=== PATIENT | female | born 1975 | race Caucasian/White ===

== ENCOUNTER 2017-10-19 23:37 | Emergency (ER) | payer MEDICARE, MEDICAID ==
[2017-10-20] MEDS ORDERED: predniSONE 20 MG Tab PO ONE
--- NOTE | 2017-10-20 00:07 | EDM.PDOC ---
ED HPI GENERAL MEDICAL PROBLEM - General Chief Complaint: General Stated Complaint: SHOOTING PAIN RIGHT SIDE OF BODY [id number] Time Seen by Provider: 10/19/17 23:55 Source of Information: Reports: Patient History Limitations: Reports: No Limitations - History of Present Illness INITIAL COMMENTS - FREE TEXT/NARRATIVE: This 41 yo female patient reports to the ED with generalized shooting pain through her entire left side of her body. The patient reports she has noticed increased symptoms over the past week. The patient reports a past history of migraine headaches as well as cervical spinal surgery. The patient reports she has had similar symptoms in the past and would like to have some pain medications to take care of her pain and allow her to sleep. Onset: Gradual Duration: Day(s):, Constant, Getting Worse Location: Reports: Generalized (right sided "shooting" pains) Quality: Reports: Sharp, Stabbing Severity: Moderate Improves with: Reports: None Worsens with: Reports: None Associated Symptoms: Reports: No Other Symptoms Treatments [employer]: Reports: NSAIDS Right Temporal Head Pain Score (Numeric/FACES): 6 - Related Data Allergies Allergy/AdvReac Type Severity Reaction Status Date / Time Fish Containing Products Allergy Swelling Verified 10/20/17 00:02 Home Meds: Home Meds Acetaminophen [Tylenol] 500 mg PO DAILY 10/20/17 [History] Levothyroxine Sodium [Synthroid] 100 mcg PO DAILY 10/20/17 [History] Propranolol [Inderal] 20 mg PO DAILY 10/20/17 [History] Rosuvastatin [Crestor] 10 mg PO DAILY 10/20/17 [History] Sertraline [Zoloft] 100 mg PO BEDTIME 10/20/17 [History] diphenhydrAMINE [Benadryl] 50 cap PO DAILY PRN 10/20/17 [History] hydrALAZINE [Apresoline] 50 mg PO DAILY 10/20/17 [History] Past Medical History Neurological History: Reports: Migraines, Other (See Below) Other Neuro History: neck injury Social & Family History - Tobacco Use Smoking Status *Q: Former Smoker Used Tobacco, but Quit: No - Caffeine Use Caffeine Use: Reports: None - Recreational Drug Use Recreational Drug Use: No ED ROS GENERAL - Review of Systems Review Of Systems: ROS reveals no pertinent complaints other than HPI. ED EXAM, GENERAL - Physical Exam Exam: See Below Exam Limited By: No Limitations General Appearance: Alert, WD/WN, Anxious, Thin Eye Exam: Bilateral Eye: EOMI, Normal Inspection, PERRL Ears: Normal External Exam, Normal Canal, Hearing Grossly Normal, Normal TMs Nose: Normal Inspection, Normal Mucosa, No Blood Throat/Mouth: Normal Inspection, Normal Lips, Normal Teeth, Normal Gums, Normal Oropharynx, Normal Voice, No Airway Compromise Head: Atraumatic, Normocephalic Neck: Normal Inspection, Supple, Non-Tender, Full Range of Motion Respiratory/Chest: No Respiratory Distress, Lungs Clear, Normal Breath Sounds, No Accessory Muscle Use, Chest Non-Tender Cardiovascular: Normal Peripheral Pulses, Regular Rate, Rhythm, No Edema, No Gallop, No JVD, No Murmur, No Rub GI/Abdominal: Normal Bowel Sounds, Soft, Non-Tender, No Organomegaly, No Distention, No Abnormal Bruit, No Mass (Female) Exam: Deferred Rectal (Female) Exam: Deferred Back Exam: Normal Inspection, Full Range of Motion, NT Extremities: Normal Inspection, Normal Range of Motion, Non-Tender, Normal Capillary Refill, No Pedal Edema Neurological: Alert, Oriented, CN II-XII Intact, Normal Cognition, Normal Gait, Normal Reflexes, No Motor/Sensory Deficits Psychiatric: Normal Affect, Normal Mood Skin Exam: Warm, Dry, Intact, Normal Color, No Rash Lymphatic: No Adenopathy Course - Vital Signs Last Recorded V/S: Last Vital Signs Temp 36.7 C 10/19/17 23:42 Pulse 88 10/19/17 23:42 Resp 16 10/19/17 23:42 BP 115/72 10/19/17 23:42 Pulse Ox 100 10/19/17 23:42 - Orders/Labs/Meds Meds: Medications Discontinued Medications Generic Name Dose Route Start Last Admin Trade Name Rcq PRN Reason Stop Dose Admin Prednisone 40 mg 10/20/17 00:00 10/20/17 00:10 Prednisone PO 10/20/17 00:01 40 mg ONETIME ONE Administration Departure - Departure Time of Disposition: 00:02 Disposition: Home, Self-Care 01 Condition: Fair Clinical Impression: Neuropathy - Discharge Information Instructions: Neuropathic Pain Referrals: PCP,Unobtain [Primary Care Provider] - Forms: ED Department Discharge Care Plan Goals: The patient was advised of the examination results during the visit. The patient was given an oral dose of Prednisone while in the ED. The patient was discharged with a script for Prednisone (20 mg) #8 to take 2 by mouth daily for 4 additional days. If the patient has any additional symptoms, the patient should follow-up with her primary care facility or return to the ED.
== END 2017-10-20 00:12 | disposition home or self-care (01) ==
LOC: DL.ED 23:37
DX: G62.9 Polyneuropathy, unspecified (principal); Z91.013 Allergy to seafood; Z79.899 Other long term (current) drug therapy; Z87.891 Personal history of nicotine dependence
CPT/HCPCS: 99283; A9270; 99282

== ENCOUNTER 2017-10-25 10:54 | Emergency (ER) | payer MEDICARE, MEDICAID ==
[2017-10-25] MEDS ORDERED: Sodium Chloride 0.9% 10 ML Syringe FLUSH PRN (11:38)
[2017-10-25] MEDS ORDERED: Ketorolac 30 MG/ML SDV IVPUSH ONE (11:38)
[2017-10-25] MEDS ORDERED: Sodium Chloride 0.9% 1,000 ML IV ONE (11:38)
[2017-10-25] MEDS ORDERED: Promethazine 25 MG/ML SDV IM ONE (11:40)
--- NOTE | 2017-10-25 12:51 | EDM.PDOC ---
ED HPI GENERAL MEDICAL PROBLEM - General Chief Complaint: General Stated Complaint: NERVE PAIN IN FACE Time Seen by Provider: 10/25/17 11:15 Source of Information: Reports: Patient, RN, RN Notes Reviewed History Limitations: Reports: No Limitations - History of Present Illness INITIAL COMMENTS - FREE TEXT/NARRATIVE: Pt presents to the ER with c/o right sided face pain. She states she has a spinal cord injury from 12 years ago, she states she fell down a flight of stairs. She states the pain is a 10/10 nerve pain from just above the right eyebrow, down to the right side of the chin. She states her teeth, tongue, and jaw are affected as well. She states a history of essential tremors following the spinal cord injury. Onset: Gradual Location: Reports: Face Quality: Reports: Stabbing Severity: Severe Improves with: Reports: None Worsens with: Reports: None Right Face Pain Score (Numeric/FACES): 10 - Related Data Allergies Allergy/AdvReac Type Severity Reaction Status Date / Time Fish Containing Products Allergy Swelling Verified 10/20/17 00:02 Home Meds: Home Meds Acetaminophen [Tylenol] 500 mg PO DAILY 10/20/17 [History] Levothyroxine Sodium [Synthroid] 100 mcg PO DAILY 10/20/17 [History] Propranolol [Inderal] 20 mg PO DAILY 10/20/17 [History] Rosuvastatin [Crestor] 10 mg PO DAILY 10/20/17 [History] Sertraline [Zoloft] 100 mg PO DAILY 10/20/17 [History] diphenhydrAMINE [Benadryl] 50 cap PO DAILY PRN 10/20/17 [History] hydrALAZINE [Apresoline] 50 mg PO DAILY 10/20/17 [History] Past Medical History Other OB/BYN History: lumps removed from breast due to infection Neurological History: Reports: Migraines, Other (See Below) Other Neuro History: neck injury 12 years ago; trigeminal neuralgia Psychiatric History: Reports: Depression Endocrine/Metabolic History: Reports: Hypothyroidism Social & Family History - Family History Family Medical History: Noncontributory - Tobacco Use Smoking Status *Q: Never Smoker Used Tobacco, but Quit: No - Caffeine Use Caffeine Use: Reports: None - Recreational Drug Use Recreational Drug Use: No ED ROS GENERAL - Review of Systems Review Of Systems: ROS reveals no pertinent complaints other than HPI. ED EXAM, GENERAL - Physical Exam Exam: See Below Exam Limited By: No Limitations General Appearance: Alert, WD/WN, Moderate Distress Eye Exam: Bilateral Eye: EOMI, Normal Inspection Ears: Normal External Exam, Hearing Grossly Normal Nose: Normal Inspection Throat/Mouth: Normal Inspection, Normal Voice, No Airway Compromise Head: Atraumatic, Normocephalic Neck: Normal Inspection, Limited Range of Motion (10 year old spinal cord injury ) Respiratory/Chest: No Respiratory Distress, Lungs Clear, Normal Breath Sounds, No Accessory Muscle Use, Chest Non-Tender Cardiovascular: Normal Peripheral Pulses, Regular Rate, Rhythm, No Edema, No Gallop, No JVD, No Murmur, No Rub Peripheral Pulses: 2+: Radial (L), Radial (R) GI/Abdominal: Normal Bowel Sounds, Soft, Non-Tender (Female) Exam: Deferred Rectal (Female) Exam: Deferred Back Exam: Normal Inspection, Decreased Range of Motion (multiple spinal surgeries, ) Extremities: Normal Inspection, Normal Range of Motion, Non-Tender, No Pedal Edema, Normal Capillary Refill Neurological: Alert, Oriented, CN II-XII Intact, Normal Cognition, Normal Gait, No Motor/Sensory Deficits Psychiatric: Normal Affect, Normal Mood Skin Exam: Warm, Dry, Intact, Normal Color, No Rash Lymphatic: No Adenopathy Course - Vital Signs Last Recorded V/S: Last Vital Signs Temp 98.7 F 10/25/17 11:21 Pulse 79 10/25/17 11:21 Resp 16 10/25/17 11:21 BP 139/94 H 10/25/17 11:21 Pulse Ox 99 10/25/17 11:21 - Orders/Labs/Meds Orders: Active Orders 24 hr Category Date Time Status Peripheral IV Care [RC] . DIRECTED Care 10/25/17 11:39 Active Sodium Chloride 0.9% [Saline Flush] Med 10/25/17 11:38 Active 10 ml FLUSH ASDIRECTED PRN Peripheral IV Insertion Adult [OM.PC] Stat Oth 10/25/17 11:37 Ordered Medication Orders Sodium Chloride (Saline Flush) 10 ml FLUSH ASDIRECTED PRN PRN Reason: Keep Vein Open Last Admin: 10/25/17 11:54 Dose: 10 ml Meds: Medications Generic Name Dose Route Start Last Admin Trade Name Freq PRN Reason Stop Dose Admin Sodium Chloride 10 ml 10/25/17 11:38 10/25/17 11:54 Saline Flush FLUSH 10 ml ASDIRECTED PRN Administration Keep Vein Open Discontinued Medications Generic Name Dose Route Start Last Admin Trade Name Freq PRN Reason Stop Dose Admin Sodium Chloride 1,000 mls @ 999 mls/hr 10/25/17 11:38 10/25/17 11:53 Normal Saline IV 10/25/17 12:38 999 mls/hr .BOLUS ONE Administration Ketorolac Tromethamine 30 mg 10/25/17 11:38 10/25/17 11:53 Toradol IVPUSH 10/25/17 11:39 30 mg ONETIME ONE Administration Promethazine HCl 25 mg 10/25/17 11:40 10/25/17 11:53 Phenergan IM 10/25/17 11:41 25 mg ONETIME ONE Administration - Re-Assessments/Exams Free Text/Narrative Re-Assessment/Exam: 10/25/17 12:55 Pt states that she was seen in the ER for this pain on 10/21. She was prescribed Prednisone for 4 days. She states she talked with her Neurologist's nurse recently who stated she needed to be seen in the ER and given an IV medication. The provider called her Neurologist, Dr. Woodson, at [facility] in [place], [place]. He states he has not physically seen her since June of 2017, that he did not recommend any IV medications to be given, and that he treats her for her spinal cord injury and migraines. He states she does not have a diagnosis of trigeminal neuralgia as the patient had reported. Dr. Woodson suggested treating the patient for an atypical migrain with toradol, phenergan, and fluids. He would like her to follow up with she returns to [place], [place]. Departure - Departure Time of Disposition: 13:09 Disposition: Home, Self-Care 01 Condition: Fair Clinical Impression: Neuralgia Headache Qualifiers: Headache type: unspecified Headache chronicity pattern: acute headache Intractability: intractable Qualified Code(s): R51 - Headache - Discharge Information Instructions: Migraine Headache, [id number], Trigeminal Neuralgia Forms: ED Department Discharge Additional Instructions: Drink plenty of water. Continue taking your prescribed medications. Follow up with Dr. Woodson when you get home. - My Orders Last 24 Hours: My Active Orders 10/25/17 11:37 Peripheral IV Insertion Adult [OM.PC] Stat 10/25/17 11:38 Sodium Chloride 0.9% [Saline Flush] 10 ml FLUSH ASDIRECTED PRN 10/25/17 11:39 Peripheral IV Care [RC] . DIRECTED - Assessment/Plan Last 24 Hours: My Active Orders 10/25/17 11:37 Peripheral IV Insertion Adult [OM.PC] Stat 10/25/17 11:38 Sodium Chloride 0.9% [Saline Flush] 10 ml FLUSH ASDIRECTED PRN 10/25/17 11:39 Peripheral IV Care [RC] . DIRECTED
== END 2017-10-25 13:36 | disposition home or self-care (01) ==
LOC: DL.ED 10:54
DX: M79.2 Neuralgia and neuritis, unspecified (principal); R51 Headache; F32.9 Major depressive disorder, single episode, unspecified; E03.9 Hypothyroidism, unspecified; Z79.899 Other long term (current) drug therapy; Z91.013 Allergy to seafood
CPT/HCPCS: 96361; 96372; 96374; 99284; J1885; J2550; J7030; J7050